=== PATIENT | male | born 1935 | race Caucasian/White ===

== ENCOUNTER 2017-02-01 08:59 | Day surgery (SDC) | payer OTHER, BC ==
[~2017-02-01] VITALS: Ht 175.3 cm; Wt 71.0 kg
[~2017-02-01 08:59] MED LIST: CENTRUM ULTRA1 EACH PO; ISOSORBIDE MONO30 MG PO; LITE COAT ASPI325 M1 PO; LO-DOSE ASPIRIN81 M2 PO; METOPROLOL SUCC25 MG PO; SIMVASTATIN40 MG PO; VITAMIN D31000 UNI2 PO
[2017-02-01 09:39] VITALS: BP 148/71
[2017-02-01 13:35] VITALS: BP 148/60
[2017-02-01 14:25] VITALS: BP 160/76
[2017-02-01 14:35] VITALS: BP 168/67
== END 2017-02-01 14:38 | disposition home or self-care (01) ==
LOC: SDC 08:59
PROC: 0SBD4ZZ Excision of Left Knee Joint, Percutaneous Endoscopic Approach (ICD-10-PCS; principal; 2017-02-01)
DX: S83.232A Complex tear of medial meniscus, current injury, left knee, initial encounter (principal); M71.22 Synovial cyst of popliteal space [Baker], left knee; M94.262 Chondromalacia, left knee; M17.12 Unilateral primary osteoarthritis, left knee; M25.562 Pain in left knee; Z79.82 Long term (current) use of aspirin; M06.9 Rheumatoid arthritis, unspecified; Z82.49 Family history of ischemic heart disease and other diseases of the circulatory system
CPT/HCPCS: J2405; J2795; J3010